=== PATIENT | female | born 2000 | race Asian ===

== ENCOUNTER 2019-08-11 13:28 | Observation (INO) | payer OTHER ==
[~2019-08-11] VITALS: Ht 157.5 cm; Wt 92.5 kg
[2019-08-11] VITALS (9 sets, daily range): BP systolic 112–137; BP diastolic 55–90; TEMP 98–99.8; Ht 157.5 cm; Wt 92.5 kg
[2019-08-11 14:17] LABS: PLATELET COUNT 387 K/uL (152-353)
[2019-08-11 14:27] LABS: POTASSIUM 4.2 mmol/L (3.6-5.2)
[2019-08-11 18:42] LABS: POTASSIUM 3.6 mmol/L (3.6-5.2)
[2019-08-12 04:00] VITALS: BP 115/65; TEMP 100
[2019-08-12 05:13] LABS: PLATELET COUNT 313 K/uL (152-353)
[2019-08-12 05:26] LABS: POTASSIUM 3.3 mmol/L (3.6-5.2)
[2019-08-12 08:00] VITALS: BP 117/74; TEMP 99.4
[2019-08-12 12:00] VITALS: BP 129/69; TEMP 98.5
[2019-08-12] MEDS ORDERED: INSU300I SC (14:42)
== END 2019-08-12 16:06 | disposition home or self-care (01) ==
LOC: ED 13:28 → MED/SURG 16:00
PROVIDERS: Internal Medicine; ADMIT Family Medicine
DX: E11.10 Type 2 diabetes mellitus with ketoacidosis without coma (principal); R11.2 Nausea with vomiting, unspecified; Z91.14 Patient's other noncompliance with medication regimen; D72.828 Other elevated white blood cell count
CPT/HCPCS: 36415; 80048; 80053; 80307; 81000; 81002; 81025; 82150; 82805; 82948; 82962; 83036; 83605; 83690; 85027; 87040; 93005; 96360; 96365; 96366; 96367; 96372; 96374; 96375; 99220; 99284; G0378; J0696; J1815; J2405; J3490

== ENCOUNTER 2019-10-25 18:20 | Emergency (ER) | payer OTHER ==
[~2019-10-25] VITALS: Ht 157.5 cm; Wt 94.3 kg
[~2019-10-25 18:20] MED LIST: INSU300I SC
[2019-10-25 19:40] VITALS: BP 168/88; TEMP 99.7
== END 2019-10-25 19:40 | disposition home or self-care (01) ==
LOC: ED 18:20
DX: Z20.2 Contact with and (suspected) exposure to infections with a predominantly sexual mode of transmission (principal); E11.65 Type 2 diabetes mellitus with hyperglycemia; B00.9 Herpesviral infection, unspecified
CPT/HCPCS: 81000; 81025; 87210; 87220; 87490; 87590; 96372; 99284; J0696; J1815; J1885

== ENCOUNTER 2019-10-30 05:42 | Emergency (ER) | payer OTHER ==
[~2019-10-30] VITALS: Ht 157.5 cm; Wt 94.3 kg
[2019-10-30 06:02] VITALS: BP 150/87; TEMP 97.9
== END 2019-10-30 06:36 | disposition home or self-care (01) ==
LOC: ED 05:42
DX: B00.9 Herpesviral infection, unspecified (principal)
CPT/HCPCS: 99282

== ENCOUNTER 2019-10-30 07:42 | Emergency (ER) | payer OTHER ==
[~2019-10-30] VITALS: Ht 157.5 cm; Wt 94.3 kg
[2019-10-30 07:45] VITALS: TEMP 98.3
[2019-10-30 08:19] LABS: PLATELET COUNT 383 K/uL (152-353)
[2019-10-30 08:30] LABS: SODIUM 133 mmol/L (136-145)
[2019-10-30 09:51] VITALS: BP 158/103
== END 2019-10-30 10:04 | disposition short-term general hospital (02) ==
LOC: ED 07:42
PROVIDERS: Emergency Medicine
DX: A60.04 Herpesviral vulvovaginitis (principal)
CPT/HCPCS: 80053; 84702; 85027; 96360; 99284

== ENCOUNTER 2019-10-30 10:15 | Outpatient (CLI) | payer OTHER | END 2019-10-30 11:25 | disposition short-term general hospital (02) | LOC: AMB 10:15 | DX: N93.9 Abnormal uterine and vaginal bleeding, unspecified (principal); N76.0 Acute vaginitis | CPT/HCPCS: A0425; A0429 ==

== ENCOUNTER 2020-11-02 10:57 | Emergency (ER) | payer OTHER ==
[~2020-11-02] VITALS: Ht 157.5 cm; Wt 94.3 kg
[2020-11-02 11:25] VITALS: TEMP 97.5
[2020-11-02 12:36] LABS: PLATELET COUNT 304 K/uL (152-353)
[2020-11-02 12:39] LABS: POTASSIUM 3.6 mmol/L (3.6-5.2)
[2020-11-02 12:53] LABS: PARTIAL THROMBOPLASTIN TIME 24.4 SECONDS (24.5-33.6)
[2020-11-02 13:57] VITALS: BP 134/72
== END 2020-11-02 13:57 | disposition short-term general hospital (02) ==
LOC: ED 10:57
PROVIDERS: Hospitalist
DX: Z3A.17 17 weeks gestation of pregnancy (principal); R10.84 Generalized abdominal pain; E11.65 Type 2 diabetes mellitus with hyperglycemia; Z79.4 Long term (current) use of insulin
CPT/HCPCS: 36415; 80053; 81000; 84702; 85027; 85610; 85730; 96360; 99284

== ENCOUNTER 2020-12-20 20:27 | Emergency (ER) | payer OTHER ==
[~2020-12-20] VITALS: Ht 157.5 cm; Wt 103.4 kg
[2020-12-20 21:09] LABS: PLATELET COUNT 343 K/uL (152-353)
[2020-12-20 21:15] LABS: POTASSIUM 3.8 mmol/L (3.6-5.2)
[2020-12-20 21:26] LABS: PARTIAL THROMBOPLASTIN TIME 26.9 SECONDS (24.5-33.6)
[2020-12-20 22:35] VITALS: BP 149/87; TEMP 98.9
== END 2020-12-20 22:35 | disposition home or self-care (01) ==
LOC: ED 20:27
PROVIDERS: Hospitalist
DX: O98.812 Other maternal infectious and parasitic diseases complicating pregnancy, second trimester (principal); B37.3 Candidiasis of vulva and vagina; O24.912 Unspecified diabetes mellitus in pregnancy, second trimester; E11.65 Type 2 diabetes mellitus with hyperglycemia; Z3A.24 24 weeks gestation of pregnancy
CPT/HCPCS: 36415; 80053; 81000; 84702; 85027; 85610; 85730; 96360; 96374; 96375; 99284; J1815; J2405

== ENCOUNTER 2021-12-18 09:28 | Emergency (ER) | payer OTHER ==
[~2021-12-18] VITALS: Ht 157.5 cm; Wt 103.4 kg
[2021-12-18 09:57] LABS: PLATELET COUNT 383 K/uL (152-353)
[2021-12-18 10:11] LABS: POTASSIUM 4.3 mmol/L (3.6-5.2)
[2021-12-18] MEDS ORDERED: PANTOPRAZOLE 40MG TA PO (12:05)
[2021-12-18] MEDS ORDERED: ONDA4TAB3 PO (12:05)
[2021-12-18] MEDS ORDERED: LOPE2CAP17 PO (12:05)
[2021-12-18] MEDS ORDERED: LEVO250T2 PO (12:05)
[2021-12-18 12:40] VITALS: BP 115/79; TEMP 98.4
== END 2021-12-18 12:40 | disposition home or self-care (01) ==
LOC: ED 09:28
PROVIDERS: Hospitalist
DX: R19.7 Diarrhea, unspecified (principal); R11.2 Nausea with vomiting, unspecified; K52.89 Other specified noninfective gastroenteritis and colitis; E11.65 Type 2 diabetes mellitus with hyperglycemia; Z79.4 Long term (current) use of insulin; N39.0 Urinary tract infection, site not specified
CPT/HCPCS: 36415; 80053; 80320; 81000; 81002; 81025; 82948; 83690; 84702; 85027; 96360; 96361; 96365; 96375; 99284; J0696; J1815; J1885; J2405; Q9963